=== PATIENT | female | born 1990 | race Caucasian/White ===

== ENCOUNTER 2022-03-09 08:00 | Outpatient (CLI) | payer OTHER ==
[~2022-03-09 08:00] MED LIST: CATAFLAM50 MG PO; ZYRTEC10 MG PO
== END 2022-03-09 08:05 | disposition home or self-care (01) ==
LOC: PPH VACUNA 08:00
PROVIDERS: ATTEND Emergency Medicine Pediatric Emergency Medicine
DX: Z23 Encounter for immunization (principal)

== ENCOUNTER 2022-05-16 09:31 | Outpatient (CLI) | payer OTHER | END 2022-05-16 13:20 | disposition home or self-care (01) | LOC: RAD 09:31 | DX: M99.01 Segmental and somatic dysfunction of cervical region (principal); M99.02 Segmental and somatic dysfunction of thoracic region; M99.03 Segmental and somatic dysfunction of lumbar region; M99.04 Segmental and somatic dysfunction of sacral region; M99.05 Segmental and somatic dysfunction of pelvic region ==